=== PATIENT | female | born 1980 | race Caucasian/White ===

== ENCOUNTER 2023-04-21 05:39 | Outpatient (CLI) | payer OTHER | END 2023-04-25 11:04 | disposition home or self-care (01) | LOC: PREOP 05:39 | PROVIDERS: ATTEND Obstetrics & Gynecology | DX: Z01.818 Encounter for other preprocedural examination (principal) ==

== ENCOUNTER 2023-05-10 07:42 | Day surgery (SDC) | payer OTHER ==
[2023-05-10] VITALS (8 sets, daily range): BP systolic 104–134; BP diastolic 49–77
[~2023-05-10] VITALS: Ht 162.6 cm; Wt 145.0 kg
[~2023-05-10 07:42] MED LIST: ALPR0.5T7 PO; FERR-84 PO; FEXO-14 PO; LEVO25CA4 PO; MOME13HF12 IH; PANT40GR PO; RT-ALBUINH INH
[2023-05-10] MEDS ORDERED: BUPIVACAINE 0.25% 30 ML VIAL ONE (07:46)
[2023-05-10] MEDS ORDERED: BUPIVACAINE 0.25% 30 ML VIAL INJ ONE (07:54)
[2023-05-10] MEDS ORDERED: LACTATED RINGERS 1,000 ML 1,000 ML IV PRN (08:00)
[2023-05-10 08:19] LABS: BASOPHILS # (AUTO) 0.1 10^3/uL (0.0-0.1); BASOPHILS % (AUTO) 1 % (0-10); EOSINOPHILS # (AUTO) 0.1 10^3/uL (0.0-0.3); EOSINOPHILS % (AUTO) 2 % (0-10); HEMATOCRIT 34 % (35-52); HEMOGLOBIN 10.3 g/dL (11.5-16.0); LYMPHOCYTES # (AUTO) 1.2 10^3/uL (1.0-4.0); LYMPHOCYTES % (AUTO) 18 % (12-44); MEAN CORPUSCULAR HEMOGLOBIN 26 pg (25-34); MEAN CORPUSCULAR HGB CONC 31 g/dL (32-36); MEAN CORPUSCULAR VOLUME 85 fL (80-99); MEAN PLATELET VOLUME 11.2 fL (9.0-12.2); MONOCYTES # (AUTO) 0.4 10^3/uL (0.0-1.0); MONOCYTES % (AUTO) 5 % (0-12); NEUTROPHILS # (AUTO) 5.1 10^3/uL (1.8-7.8); NEUTROPHILS % (AUTO) 74 % (42-75); PLATELET COUNT 260 10^3/uL (130-400); WHITE BLOOD COUNT 6.9 10^3/uL (4.3-11.0)
[2023-05-10] MEDS ORDERED: proPOfol INJECTION 200 MG/20 ML VIAL IV ONE (08:56)
[2023-05-10] MEDS ORDERED: ONDANSETRON INJECTION 4 MG/2 ML (SDV) ONE (08:56)
[2023-05-10] MEDS ORDERED: LIDOCAINE PF 2% 5 ML VIAL ONE (08:56)
[2023-05-10] MEDS ORDERED: fentaNYL INJECTION 100 MCG/2 ML VIAL ONE (08:57)
[2023-05-10] MEDS ORDERED: MIDAZOLAM INJ 2 MG/2 ML VIAL ONE (08:57)
[2023-05-10] MEDS ORDERED: ONDANSETRON INJECTION 4 MG/2 ML (SDV) IVP PRN ×2 (10:00→10:45)
[2023-05-10] MEDS ORDERED: HYDROcodone/ACETAMINOPHEN 5 MG/325 MG TABLET PO PRN (10:00)
[2023-05-10] MEDS ORDERED: KETOROLAC INJ 30 MG/ML VIAL IVP ONE (10:00)
[2023-05-10] MEDS ORDERED: D5 LR 1,000 ML IV SOLN 1,000 ML IV SCH (10:00)
--- NOTE | 2023-05-10 10:01 | Progress Note-Pre Operative ---
Pre-Operative Progress Note Date of Available H&P: May 10, 2023 Date H&P Reviewed: May 10, 2023 Time H&P Reviewed: 09:45 History & Physical: H&P Reviewed, Patient Examed, No changes noted Pre-Operative Diagnosis: AUB, BMI 50> GRACIELA HOANG DO May 10, 2023 10:01
--- NOTE | 2023-05-10 10:02 | Discharge Inst-Women's Service ---
Discharge Inst-Women's Serv Depart Medication/Instructions New, Converted or Re-Newed RX: Transmitted to Pharmacy Problems Reviewed?: Yes Consults/Follow Up Additional Follow Up: Yes Orders/Referrals Dr. Sosa in 2 weeks Activity Activity: Activity as Tolerated Driving Instructions: No Driving for 1 Week NO SMOKING: NO SMOKING Nothing Inside Vagina: No Douching, No [place], No Tampons Diet Discharge Diet: No Restrictions Symptoms to Report to : Bleeding Excessive, Pain Increased, Fever Over 101 Degrees F, Vaginal Bleeding Increase, Questions/Concerns For Any Problems or Questions: Contact Your Physician Skin/Wound Care Infection Signs and Symptoms: Increased Redness, Foul Odor of Wound, Increased Drainage, Skin Itchy or Has a Rash, Increased Swelling, Temperature Above 101 F Operative Area Clean and Dry: Keep Incision Clean/Dry Stitches/Tami/Dermabond: Dermabond, Care of Stitches Bathing Instructions: GRACIELA Cobb DO May 10, 2023 10:02
[2023-05-10] MEDS ORDERED: SUCCINYLCHOLINE INJ 20 MG/1 ML 10 ML VIAL ONE (10:22)
[2023-05-10] MEDS ORDERED: ROCURONIUM 50 MG/5 ML VIAL IV ONE (10:22)
[2023-05-10] MEDS ORDERED: SEVOFLURANE (ULTANE) 15 ML INHAL SOLN ONE (10:28)
--- NOTE | 2023-05-10 10:33 | Anesthesia-General Post-Op ---
General Patient Condition Mental Status/LOC: Same as Preop Cardiovascular: Satisfactory Nausea/Vomiting: Absent Respiratory: Satisfactory Pain: Controlled Complications: Absent Post Op Complications Complications None Follow Up Care/Instructions Patient Instructions None needed. Anesthesia/Patient Condition Patient Condition Patient is doing well, no complaints, stable vital signs, no apparent adverse anesthesia problems. No complications reported per nursing. MAXWELL BENNETT CRNA May 10, 2023 10:33
[2023-05-10] MEDS ORDERED: fentaNYL INJECTION 100 MCG/2 ML VIAL IVP ONE (10:45)
--- NOTE | 2023-05-10 19:41 | OPERATIVE REPORT ---
DATE OF SERVICE: 05/10/2023 PREOPERATIVE DIAGNOSES: 1. A 42-year-old female with abnormal uterine bleeding. 2. BMI greater than 50. POSTOPERATIVE DIAGNOSES: 1. A 42-year-old female with abnormal uterine bleeding. 2. BMI greater than 50. PROCEDURE: D and C. SURGEON: Graciela Hoang DO ANESTHESIA: LMA general. ESTIMATED BLOOD LOSS: Minimal. URINE OUTPUT: 250 mL drained at the end of the procedure. FLUIDS: 800 mL lactated Ringer's solution. FINDINGS: Grossly normal-appearing external female genitalia. Grossly normal-appearing vaginal mucosa and cervix. SPECIMEN SENT: Endometrial curettings. INDICATIONS FOR PROCEDURE: This 42-year-old female is the patient who had sought care in my office for ongoing issues of 2-week episodes of heavy vaginal bleeding that she has been undergoing for the past several years. She wished to proceed with more aggressive measures; however, I discussed with her endometrial sampling and the potential D and C, potentially curing her issue and given this, a trial as a more conservative option to proceed with hysterectomy. Risk of procedure discussed with the patient in detail and after all of her questions were answered, she was agreeable to proceed. Consent was obtained. The patient was taken to the operating room. OPERATIVE REPORT IN DETAIL: Once in the operating room, anesthesia was administered and found to be adequate, was placed in dorsal lithotomy position, prepped and draped in normal sterile fashion. A timeout was performed. A weighted speculum inserted to the patient's vagina. After straight catheterization was performed, a right angle retractor was used to visualize the cervix, was grasped at 12 o'clock position using a long Allis clamp. I then performed a paracervical block at 3 and 9 o'clock positions on the cervix. Care was taken to aspirate for injecting 5 mL of 0.25% Marcaine are injected into each site. I then gently sound the uterine cavity, depth was found to be 8 cm. I then gently dilate the cervix using Hanks dilators to maximum dilatation of 1 cm, at which point I performed gentle curettage of the endometrium using a medium size endometrial curette. A moderate amount of endometrial tissue was collected in the process of doing this. I collected this and sent it as endometrial curettings. I then removed the Allis from the patient's cervix and removed all the other instruments from the patient's vagina. The patient tolerated the procedure well and sent to recovery area in stable condition. Lap and sponge counts were correct at the end of the procedure. Instrument counts correct as well. Job ID: [id number] DocumentID: [id number] Dictated Date: 05/10/2023 11:01:18 Munitions Handler Supervisor Date: 05/10/2023 19:40:00 Dictated By: GRACIELA HOANG DO
== END 2023-05-10 12:08 | disposition home or self-care (01) ==
LOC: SDC 07:42
PROVIDERS: ATTEND Obstetrics & Gynecology
DX: N93.9 Abnormal uterine and vaginal bleeding, unspecified (principal); N84.0 Polyp of corpus uteri; R93.89 Abnormal findings on diagnostic imaging of other specified body structures; G47.33 Obstructive sleep apnea (adult) (pediatric); K21.9 Gastro-esophageal reflux disease without esophagitis; E66.01 Morbid (severe) obesity due to excess calories; F17.210 Nicotine dependence, cigarettes, uncomplicated; Z99.81 Dependence on supplemental oxygen; Z79.899 Other long term (current) drug therapy; Z68.43 Body mass index [BMI] 50.0-59.9, adult
CPT/HCPCS: 36415; 84703; 85025; 86850; 86900; 86901; 87081